=== PATIENT | female | born 1985 ===

== ENCOUNTER 2021-11-14 02:29 | Inpatient (IN) ==
[2021-11-14 04:18] LABS: Urine Benzodiazepine Screen None Detected (None Detect); Urine Cannabinoids Screen None Detected (None Detect); Urine Opiates Screen None Detected (None Detect)
[2021-11-14] MEDS ORDERED: Oxytocin in LR 20 UNITS/1,000 ML BAG IVPB ONE (05:08)
[2021-11-14] MEDS ORDERED: Oxytocin 10 UNITS/ML 1 ML VIAL ONE (05:28)
[2021-11-14] MEDS ORDERED: Oxytocin 10 UNITS/ML 1 ML VIAL IM ONE (05:41)
[2021-11-14] MEDS ORDERED: Lactated Ringers 1000 ml BAG 1,000 ML IV ONE (05:43)
[2021-11-14] MEDS ORDERED: Oxytocin in LR 20 UNITS/1,000 ML BAG IVPB SCH (06:00)
[2021-11-14] MEDS ORDERED: Lactated Ringers 1000 ml BAG 1,000 ML IV SCH (06:00)
[2021-11-14 06:11] LABS: ABS Eosinophils 0.1 10^3/ul (0-0.6); ABS Monocytes 0.4 10^3/ul (0-0.8); ABS Neutrophils 8.9 10^3/ul (1.5-7.7); Eosinophil % 0.7 %; Hematocrit 37 % (35-47); Hemoglobin 12.3 g/dL (12.0-16.0); Lymphocyte % 17.3 %; Mean Corpuscular HGB Conc 33 g/dL (31-36); Mean Corpuscular Hemoglobin 29 pg (27-31); Mean Corpuscular Volume 88 fL (80-97); Mean Platelet Volume 9.5 fL (7.4-10.4); Platelet Count 192 10^3/uL (150-450); Red Blood Count 4.23 10^6 /uL (3.70-4.87); Red Cell Distribution Width 13 % (10-15); White Blood Count 11.4 10^3/uL (3.5-10.8)
[2021-11-14 07:30] LABS: HIV 4th Generation Nonreactive (Nonreactive)
[2021-11-14] MEDS: Dibucaine 1% OINT 28.35 GM TUBE PR PRN (09:44)
[2021-11-14] MEDS: Witch Hazel PAD JAR TOPICAL PRN (09:44)
[2021-11-15] MEDS: Dibucaine 1% OINT 28.35 GM TUBE PR PRN ×2 (05:51→12:19)
[2021-11-15 07:50] LABS: ABS Eosinophils 0.3 10^3/ul (0-0.6); ABS Lymphocytes 2.3 10^3/ul (1.0-4.8); ABS Monocytes 0.7 10^3/ul (0-0.8); ABS Neutrophils 7.8 10^3/ul (1.5-7.7); Eosinophil % 2.3 %; Hematocrit 29 % (35-47); Hemoglobin 9.9 g/dL (12.0-16.0); Lymphocyte % 20.6 %; Mean Corpuscular HGB Conc 34 g/dL (31-36); Mean Corpuscular Hemoglobin 30 pg (27-31); Mean Corpuscular Volume 88 fL (80-97); Mean Platelet Volume 8.2 fL (7.4-10.4); Platelet Count 143 10^3/uL (150-450); Red Blood Count 3.34 10^6 /uL (3.70-4.87); Red Cell Distribution Width 14 % (10-15)
[2021-11-15 11:34] VITALS: BP 111/64
[2021-11-15] MEDS: Witch Hazel PAD JAR TOPICAL PRN (12:18)
[2021-11-15] MEDS ORDERED: Measles, Mumps,Rubella VACC 0.5 ML/VIAL ONE (12:37)
== END 2021-11-15 13:27 | disposition home or self-care (01) | DRG 807 ==
LOC: MCHOBOUT 02:29 → MCHOB 03:03
PROVIDERS: ADMIT Midwife; ATTEND Midwife